=== PATIENT | female | born 2000 | race Caucasian/White ===

== ENCOUNTER 2021-11-09 12:18 | Emergency (ER) | payer OTHER, SELFPAY ==
[2021-11-09 12:28] VITALS: BP 123/85; PULSE 140; RESP 20; TEMP 37.2; O2SAT 99
--- NOTE | 2021-11-09 12:31 | ED.URI ---
HPI - URI/Sore Throat General Chief Complaint: Upper Respiratory Infection Stated Complaint: FEVER/SWOLLEN GLAND/HURTS TO SWALLOW/CHILLS Time Seen by Provider: 11/09/21 12:40 History of Present Illness HPI Narrative: 21 y/o female presented for c/o sore throat and fever since yesterday. Endorses headache today. Fever 102 at home. Has not taken anything for symptoms. Denies cough chest pain, sob, wheezing, nausea, vomiting, diarrhea. Denies sick contacts. Not vaccinated for covid. Related Data Home Medications Medication Instructions Recorded Confirmed No Home Medications 11/09/21 11/09/21 Allergies Allergy/AdvReac Type Severity Reaction Status Date / Time No Known Allergies Allergy Verified 11/09/21 12:25 Review of Systems Review of Systems: CONSTITUTIONAL: Endorses body aches, fever, chills EYES: Denies visual changes, redness, or discharge. ENT: Denies rhinorrhea, congestion, or otalgia. CARDIOVASCULAR: Denies chest pain, palpitations, or edema. RESPIRATORY: Denies dyspnea. GASTROINTESTINAL: Denies abdominal pain, nausea, vomiting, or diarrhea. SKIN: Denies rash, itching, or wounds. MUSCULOSKELETAL: Denies back pain, joint pain, or myalgia. NEUROLOGIC: Endorses headache Exam Narrative: GENERAL: Ill-appearing, no acute distress. EYES: conjunctivae clear ENT: Mucous membranes moist. TMs pearly hernandez with normal light reflex bilaterally; no tragal tenderness. Oropharynx erythematous without lesions. Tonsils enlarged 3+ and without exudate. No drooling, no hoarseness, no trismus, uvula midline. No tripod positioning, hot potato voice, or soft palate swelling. NECK: Supple. anterior cervical lymphadenopathy CHEST: Clear to auscultation, breath sounds equal. No respiratory distress, speaks in full sentences. HEART: tachycardic and regular rhythm. No murmur heard. SKIN: Warm, dry, no rash. NEURO: Alert and oriented x3. Course Course Emergency Course: Patient is aware of diagnosis, understands and agrees to treatment plan. Anticipatory guidance given. Patient agrees to follow-up as directed and is aware of reasons to seek care at the emergency department. Portions of this record may have been created with voice recognition software Level of Care: Express Care Visit Vital Signs Vital signs: Vital Signs Temperature 98.9 F 11/09/21 12:28 Pulse Rate 140 H 11/09/21 12:28 Respiratory Rate 20 11/09/21 12:28 Blood Pressure 123/85 11/09/21 12:28 Pulse Oximetry 99 11/09/21 12:28 Temperature 98.9 F 11/09/21 12:28 Pulse Rate 140 H 11/09/21 12:28 Respiratory Rate 20 11/09/21 12:28 Blood Pressure 123/85 11/09/21 12:28 Pulse Oximetry 99 11/09/21 12:28 MDM - URI/Sore Throat MDM Narrative Medical decision making narrative: Neg strep and covid result reviewed with pt. Advise supportive treatments. Patient is appropriate for outpatient treatment and follow-up. Differential Diagnosis Differential diagnosis: Likely upper respiratory infection, viral infection and pharyngitis Discharge Plan Discharge Clinical Impression: Pharyngitis Patient Disposition: Home, Self-Care Condition: Stable Instructions: Strep Throat (ED) Additional Instructions: Your Rapid COVID test was negative today. If you are symptomatic with reason to believe you have COVID-19, there is a high possibility your rapid test may not have detected the virus. You should follow appropriate guidelines regarding quarantine, hand washing, mask wearing, and social distancing You can retest in 1-2 days. Rapid strep swab was negative today You will be notified in a few days if the culture comes back positive for strep, and appropriate antibiotics will be called in at that time. if symptoms are due to a viral illness, it is not treated with antibiotics. Viral symptoms can be present for up to 10-14 days. Tylenol 1000mg and ibuprofen 600mg every 8 hours as needed for pain/fever Soft foods, cool liqui
== END 2021-11-09 13:03 | disposition home or self-care (01) ==
PROVIDERS: Emergency Provider Nurse Practitioner Family
DX: J02.9 Acute pharyngitis, unspecified (principal); Z20.822 Contact with and (suspected) exposure to COVID-19
CPT/HCPCS: 87081; 87426; 87880; 99213; C9803; G0463

== ENCOUNTER 2022-03-19 15:38 | Emergency (ER) | payer OTHER, SELFPAY ==
[2022-03-19 15:54] VITALS: BP 129/91; PULSE 83; TEMP 36.7; O2SAT 100
--- NOTE | 2022-03-19 16:04 | ECG_ITS ---
Measurements Intervals [place] Rate: 75 P: 51 WV: 136 QRS: 82 QRSD: 110 T: 58 QT: 383 QTc: 429 Interpretive Statements SINUS RHYTHM INCOMPLETE RIGHT BUNDLE BRANCH BLOCK [90+ ms QRS DURATION, TERMINAL R IN V1/V2, 40+ ms S IN I/aVL/V4/V5/V6] COMPARED TO ECG 03/19/2022 16:05:53 INCOMPLETE RIGHT BUNDLE-BRANCH BLOCK NOW PRESENT Electronically Signed On 03-20-2022 11:13:43 [employer] by Sheng Jaramillo M.D.
--- NOTE | 2022-03-19 16:28 | ED.GENADULT ---
HPI - General Adult General Chief complaint: Chest Pain Stated complaint: lt side back/arm pain,chest pain Source: patient Mode of arrival: ambulatory Limitations: no limitations History of Present Illness HPI narrative: Patient presents for evaluation of sternal chest pain since 0800 this morning. She indicates she had symptoms intermittently throughout the night which caused her to wake from sleep. The pain was significantly worse this morning. Her pain has been accompanied by palpitations. She states the pain feels like of dull pressure. She rates pain 5/10 in severity. Pain is now radiating into LUE. Sharp she also reports pain in her left upper ribs. She states that it hurts to take a deep breath and she feels a sensation of restriction with deep inspiration. She further reports shortness of breath. Denies any fever, chills, nausea, vomiting, cough, other infectious symptoms. No history of similar symptoms. she does not smoke. She is on an oral contraceptive. No leg swelling. She indicates she is generally an anxious individual but is not on any medication to assist with her symptoms. She attended a social engagement last night and states that she was tearful after another friend was experiencing some anxiety. She had a few drinks last night but recalls all details related to the events of the evening. No additional complaints or concerns. Her menstrual pattern is usually regular but it has been 1.5 months since LMP. Not currently sexually active. No vaginal bleeding or discharge. She does not have a primary care provider for which she can see for this issue. Related Data Home Medications Medication Instructions Recorded Confirmed No Home Medications 11/09/21 11/09/21 Allergies Allergy/AdvReac Type Severity Reaction Status Date / Time No Known Allergies Allergy Verified 03/19/22 15:49 Review of Systems Review of Systems: CONSTITUTIONAL: Denies fever, chills, or sweats. EYES: Denies visual changes, redness, or discharge. ENT: Denies rhinorrhea, congestion, sore throat, or otalgia. CARDIOVASCULAR: Reports chest pain and palpitations RESPIRATORY: Reports shortness of breath. Denies cough GASTROINTESTINAL: Denies abdominal pain, nausea, vomiting, or diarrhea. GENITOURINARY: Denies dysuria or hematuria. SKIN: Denies rash or itching. MUSCULOSKELETAL: Reports back pain. Denies joint pain, or myalgia. NEUROLOGIC: Denies headache, numbness, dizziness, or weakness. PSYCHIATRIC: reports stress and anxiety. PMFSH Past Medical History Medical History (Updated 03/19/22 @ 16:41 by Gómez Cheek, DANIA, ) No pertinent past medical history Surgical History Surgical History History of shoulder surgery Family History Family History Mother Family history non-contributory Social History Social History Smoking status: Never smoker Alcohol intake: current Alcohol use details: social once per week Substance use: never Gender identity (if verbalized by the patient): Female Spiritual care concerns: No Exam Narrative: GENERAL: Well-appearing, well-nourished, and in no acute distress. HEAD: Normocephalic, atraumatic. EYES: PERRLA and EOMI. ENT: Nares clear, no rhinorrhea or epistaxis. Mucous membranes moist. Oropharynx without tonsillar hypertrophy exudate or other lesions. Bilateral TMs pearly hernandez nonbulging NECK: Supple. No adenopathy or masses. No carotid bruits or JVD CHEST: Clear to auscultation. No respiratory distress. No wheezes rales or rhonchi HEART: Regular rate and rhythm. No murmur heard. Normal peripheral pulses. ABDOMEN: Soft, nontender, nondistended, normal active bowel sounds. EXTREMITIES: Normal range of motion. No edema. SKIN: Warm, dry, no rash. NEURO: No focal deficits. Alert and oriente
== END 2022-03-19 16:30 | disposition short-term general hospital (02) ==
LOC: EXPGOSH 15:42
PROVIDERS: Emergency Provider Nurse Practitioner
DX: R07.9 Chest pain, unspecified (principal); R00.2 Palpitations; I45.10 Unspecified right bundle-branch block
CPT/HCPCS: 81025; 93005; 99213; G0463

== ENCOUNTER 2022-03-19 16:47 | Emergency (ER) | payer OTHER, SELFPAY ==
--- NOTE | ~2022-03-19 | XR_ITS ---
EXAMINATION: XR chest 2V Exam Date/Time: 03/19/2022 17:10 [employer]ME [employer]APER HISTORY: Chest Pressure, LT ARM PAIN, Elevated HR SINCE THIS AM Comparison: None available. RESULT: Lines, tubes, and devices: Glenoid fixation screws.. Lungs and pleura: Clear. Cardiomediastinal silhouette: Normal. Other: No acute osseous or upper abdominal finding. IMPRESSION: No acute cardiopulmonary process. Reviewed, dictated and finalized at location [facility]. [employer] [employer]
[2022-03-19 16:49] VITALS: BP 127/88; PULSE 74; RESP 14; TEMP 36.5; O2SAT 100
--- NOTE | 2022-03-19 16:55 | ECG_ITS ---
Measurements Intervals [place] Rate: 72 P: 46 IA: 135 QRS: 70 QRSD: 106 T: 49 QT: 400 QTc: 439 Interpretive Statements SINUS RHYTHM WITH MARKED SINUS ARRHYTHMIA NO PREVIOUS ECG AVAILABLE FOR COMPARISON Electronically Signed On 03-20-2022 11:12:45 [employer]OUTE AIDE by Sheng Jaramillo M.D.
--- NOTE | 2022-03-19 17:11 | ED.CHESTPAIN ---
HPI - Chest Pain General Chief Complaint: Chest Pain Stated Complaint: chest pain, back pain, and upper left arm Time Seen by Provider: 03/19/22 17:06 Source: patient Mode of arrival: ambulatory Limitations: no limitations History of Present Illness HPI narrative: This is a 22-year-old female that presents to the emergency department for chest pain ongoing since this morning. Reports an achy chest pain that was substernal initially. Reports she took a nap and the pain started to radiate into the left side of her chest and left side of her back. No known alleviating or exacerbating factors. She has not taken anything for pain. She was seen at urgent care and sent here for further evaluation. Denies fever, cough, shortness of breath, abdominal pain, or vomiting. Related Data Home Medications Medication Instructions Recorded Confirmed drospirenone 3 mg-ethinyl tablet 03/19/22 estradiol 0.02 mg tablet (Vestura (28)) Allergies Allergy/AdvReac Type Severity Reaction Status Date / Time No Known Allergies Allergy Verified 03/19/22 16:54 Review of Systems Review of Systems: CONSTITUTIONAL: Denies fever CARDIOVASCULAR: Reports chest pain, palpitations. Denies edema. RESPIRATORY: Denies cough or dyspnea. GASTROINTESTINAL: Denies abdominal pain, nausea, vomiting All systems reviewed & are unremarkable except as noted in HPI and below PMFSH Past Medical History Medical History (Updated 03/19/22 @ 18:05 by Germaine Brush PA-C) No pertinent past medical history Surgical History Surgical History History of shoulder surgery Family History Family History Mother Family history non-contributory Social History Social History Smoking status: Never smoker Alcohol intake: current Alcohol use details: social once per week Substance use: never Gender identity (if verbalized by the patient): Female Spiritual care concerns: No Exam Narrative: GENERAL: Well-appearing, well-nourished, and in no acute distress. HEAD: Normocephalic, atraumatic. EYES: EOMI. ENT: Mucous membranes moist. Oropharynx without tonsillar hypertrophy exudate or other lesions. CHEST: Clear to auscultation. No respiratory distress. No wheezes rales or rhonchi HEART: Regular rate and rhythm. No murmur heard. Normal peripheral pulses. EXTREMITIES: Normal range of motion. No edema. SKIN: Warm, dry, no rash. NEURO: No focal deficits. Alert and oriented x3. PSYCH: Normal mood and affect Course Vital Signs Vital signs: Vital Signs Temperature 97.7 F 03/19/22 16:49 Pulse Rate 74 03/19/22 16:49 Respiratory Rate 14 03/19/22 16:49 Blood Pressure 127/88 03/19/22 16:49 Pulse Oximetry 100 03/19/22 16:49 Temperature 97.7 F 03/19/22 16:49 Pulse Rate 81 03/19/22 17:48 Respiratory Rate 19 03/19/22 17:48 Blood Pressure 112/83 03/19/22 17:48 Pulse Oximetry 98 03/19/22 17:48 MDM - Chest Pain MDM Narrative Medical decision making narrative: Patient presents emergency department for chest pain ongoing since this morning. Her vitals are normal. She is in no acute distress. CBC and metabolic panel without concerning findings. Chest x-ray without acute cardiopulmonary abnormality. EKG without concerning changes and baseline troponin is negative. Her D-dimer is not elevated. Her heart score is 0. She reports improvement with Toradol and Tylenol. She is stable and felt appropriate for further evaluation. She was instructed to have close follow up with her PCP. She was given warnings to return to the ER Differential Diagnosis Differential diagnosis: Likely pneumothorax, atypical chest pain, costochondritis and other (pulmonary embolism, GERD, muscle strain, pneumonia) Lab Data Attestation: I reviewed the patient's lab resul
[2022-03-19 17:13] LABS: Basophils Percent Auto 0.1 % (0.2-1.2); Eosinophils Percent Auto 0.1 % (0-4.4); Hemoglobin 14.3 g/dL (12.0-15.0); Immature Granulocyte Absolute 0.02 K/mm3 (0.00-0.031); Immature Granulocyte Percent A 0.3 % (0-0.5); Lymphocytes Absolute Auto 1.25 K/mm3 (0.9-3.2); Lymphocytes Percent Auto 16.1 % (18.3-44.2); Mean Corpuscular HGB Conc 34.9 g/dl (32-36); Mean Corpuscular Hemoglobin 30.5 pg (26-34); Mean Corpuscular Volume 87.4 fl (80-100); Monocytes Absolute Auto 1.1 K/mm3 (0.1-0.6); Monocytes Percent Auto 13.8 % (2.6-8.5); Neutrophils Absolute Auto 5.4 K/mm3 (1.3-6.7); Neutrophils Percent Auto 69.6 % (45.5-73.1); Platelet Count Result 287 k/mm3 (150-375); Red Blood Count 4.69 M/mm3 (4.2-5.4); Red Cell Distribution Width 11.9 % (11.5-14.5); White Blood Count 7.8 K/mm3 (4.5-10.0)
[2022-03-19 17:20] VITALS: PULSE 92
[2022-03-19 17:24] LABS: Alanine Aminotransferase 30 U/L (6-35); Albumin Level 4.9 g/dL (3.5-5.1); Alkaline Phosphatase 57 U/L (38-126); Anion Gap 10 mmol/L (8-16); Aspartate Amino Transferase 38 U/L (14-36); Bilirubin,Total 0.6 mg/dL (0.2-1.3); Blood Urea Nitrogen 7 mg/dL (7-17); Calcium 9.7 mg/dL (8.4-10.2); Carbon Dioxide 25 mmol/L (22-30); Chloride 103 mmol/L (98-107); Estimated CRCL calculation 99 ml/min; Estimated Glomerular Filt Rate > 60; Glucose 116 mg/dL (65-110); Lipase 98 U/L (23-300); Potassium 3.6 mmol/L (3.4-5.0); Sodium 138 mmol/L (137-145)
[2022-03-19 17:26] LABS: Prothrombin Time 12.9 Seconds (11.1-14.7)
[2022-03-19 17:27] LABS: Partial Thromboplastin Time 26.4 SECONDS (22.3-36.8)
[2022-03-19 17:35] LABS: Troponin I < 0.012 ng/mL (0.000-0.034)
[2022-03-19 17:36] LABS: D Dimer 0.46 ug/mL (<0.48)
[2022-03-19 17:48] VITALS: BP 112/83; PULSE 81; RESP 19; O2SAT 98
[2022-03-19] MEDS: KETOROLAC 15 MG/ML VIAL (*BKC) IV PUSH (17:48)
[2022-03-19 19:20] VITALS: BP 105/76; PULSE 74; RESP 19; O2SAT 98
== END 2022-03-19 19:22 | disposition home or self-care (01) ==
PROVIDERS: Emergency Medicine; Emergency Provider Physician Assistant
DX: R07.9 Chest pain, unspecified (principal)
CPT/HCPCS: 36415; 71046; 80053; 83690; 84484; 85025; 85380; 85610; 85730; 93005; 96374; 96375; 99284; J0131; J1885